=== PATIENT | male | born 1990 | race Caucasian/White ===

== ENCOUNTER 2017-01-13 11:34 | Emergency (ER) | payer OTHER ==
[~2017-01-13] VITALS: Ht 162.6 cm; Wt 72.0 kg
[2017-01-13 12:01] VITALS: BP 131/79; PULSE 101; RESP 19; TEMP 98.2; O2SAT 98
[2017-01-13 12:04] VITALS: BP 131/79; PULSE 101; RESP 19; TEMP 98.2; O2SAT 98
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
[2017-01-13] MEDS ORDERED: TETANUS/DIPHTHERIA TOXOID ADULT 0.5 ML VIAL IM ONE (12:15)
--- NOTE | 2017-01-13 12:49 | RADRPT ---
EXAM DATE/TIME: 01/13/2017 12:14 [facility] COMPARISON: No previous studies available for comparison. INDICATIONS : Right shoulder pain after a fall today. MEDICAL HISTORY : None. SURGICAL HISTORY : None. ENCOUNTER: Initial ACUITY: 1 day PAIN SCORE: 6/10 LOCATION: Right shoulder. FINDINGS: Two view examination of the right shoulder demonstrates no evidence of fracture or dislocation. The glenohumeral and acromioclavicular joints are maintained. Bony mineralization is normal. CONCLUSION: Negative for fracture or dislocation. Follow up in 7-10 days is suggested if symptoms persist. Bryan Arango MD FACR on January 13, 2017 at 12:47 Board Certified Radiologist. This report was verified electronically.
--- NOTE | 2017-01-13 12:50 | RADRPT ---
EXAM DATE/TIME: 01/13/2017 12:18 [facility] COMPARISON: No previous studies available for comparison. INDICATIONS : Posterior right elbow abrasions and pain after a fall today. MEDICAL HISTORY : None. SURGICAL HISTORY : None. ENCOUNTER: Initial ACUITY: 1 day PAIN SCORE: 6/10 LOCATION: Right posterior elbow. FINDINGS: Two view examination of the right elbow demonstrates no soft tissue swelling, joint effusion, fractur e or dislocation. Bony mineralization is normal. CONCLUSION: Negative for fracture or dislocation. Follow up in 7-10 days is suggested if symptoms persist. Bryan Arango MD FACR on January 13, 2017 at 12:48 Board Certified Radiologist. This report was verified electronically.
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
[2017-01-13] MEDS ORDERED: IBUPROFEN 600 MG TAB PO ONE (14:00)
[2017-01-13] MEDS ORDERED: IBUP-232 PO (14:06)
[2017-01-13] MEDS ORDERED: BACI500O2 TOPICAL (14:06)
[2017-01-13 14:41] VITALS: BP 123/79
== END 2017-01-13 14:30 ==
LOC: NEPD 11:34
DX: S09.90XA Unspecified injury of head, initial encounter (principal); M25.521 Pain in right elbow; W22.8XXA Striking against or struck by other objects, initial encounter
CPT/HCPCS: 70450; 73030; 73070; 90471; 90714